=== PATIENT | male | born 1965 | race Caucasian/White ===

== ENCOUNTER 2021-02-04 08:22 | Emergency (ER) | payer MEDICAID ==
[~2021-02-04] VITALS: Ht 182.9 cm; Wt 71.4 kg
[~2021-02-04 08:22] MED LIST: HYDR-3248 PO; HYDR-3653 PO; ONDA4TAB7 PO
--- NOTE | 2021-02-04 09:50 | NUR ---
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
[2021-02-04] MEDS ORDERED: SODIUM CHLORIDE 0.9% 1,000ML IVBOLUS ONE (10:30)
[2021-02-04] MEDS ORDERED: SODIUM CHLORIDE FLUSH 10ML SYR IVF ONE (10:30)
[2021-02-04] MEDS ORDERED: ONDANSETRON 2MG/ML, 2ML IVPush ONE (10:30)
[2021-02-04] MEDS ORDERED: ONDANSETRON 2MG/ML, 2ML ONE (10:30)
--- NOTE | 2021-02-04 10:33 | NUR ---
PT AMBULATORY TO ROOM 7 W/ C/O NAUSEA AND DIARRHEA X 2 DAYS W/ MILD ABD PAIN. PT DENIES EMESIS. PT RESTING ON HCRIS. RIC. MONITORS APPLIED. VSS.
[2021-02-04 10:47] LABS: BASOPHILS % (AUTO) 0 % (0-1); EOSINOPHILS % (AUTO) 2 % (1-7); LYMPHOCYTES % (AUTO) 11 % (22-44); MEAN CORPUSCULAR HEMOGLOBIN 31.1 pg (27.5-34.5); MEAN PLATELET VOLUME 8.9 fL (7.4-10.4); MONOCYTES % (AUTO) 8 % (2-9); NEUTROPHILS % (AUTO) 79 % (42-75); PLATELET COUNT 225 x10^3/uL (130-400); RED BLOOD COUNT 4.69 x10^6/uL (4.38-5.82); RED CELL DISTRIBUTION WIDTH 13.3 % (9.4-14.8)
[2021-02-04 10:51] LABS: ALBUMIN 3.7 g/dL (3.4-5.0); ANION GAP 3 mmol/L (5-15); CALCIUM 8.8 mg/dL (8.5-10.1); CHLORIDE 111 mmol/L (98-107)
[2021-02-04 10:54] LABS: ALANINE AMINOTRANSFERASE 52 U/L (12-78); ALKALINE PHOSPHATASE 98 U/L (45-117); BILIRUBIN,TOTAL 0.4 mg/dL (0.2-1.0); TOTAL PROTEIN 7.3 g/dL (6.4-8.2)
--- NOTE | 2021-02-04 11:02 | NUR ---
PER [employer] LAW NO NEED FOR UA SAMPLE.
[2021-02-04 11:12] VITALS: BP 113/72
--- NOTE | 2021-02-04 11:12 | NUR ---
PT RESTING ON GURNEY. NADN. MERA.
== END 2021-02-04 11:27 | disposition home or self-care (01) ==
LOC: ED 11:24
DX: R11.2 Nausea with vomiting, unspecified (principal); R19.7 Diarrhea, unspecified; R10.84 Generalized abdominal pain
CPT/HCPCS: 36415; 80053; 83690; 85025; 96361; 96374; 99283; J2405; J7030